=== PATIENT | male | born 1935 | race Caucasian/White ===

== ENCOUNTER 2016-09-09 19:36 | Observation (INO) | payer OTHER ==
[2016-09-09 19:45] VITALS: BP 136/79; PULSE 86; RESP 16; TEMP 98.2; O2SAT 92
[2016-09-09 20:07] VITALS: O2SAT 96
--- NOTE | 2016-09-09 20:08 | PD ---
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 The patient is currently a resident at [facility]. He has been at that facility for the last week. Prior to that he was admitted to [facility] with a stroke and then went [facility] for a month for rehabilitation. The patient's family reports that they are extremely unhappy with the care at [facility] and do not want him to return to that facility. The patient shakes his head yes to having pain in the right leg, right hip area. The patient however was able to stand and pivot with the assistance of ambulance services prior to arrival. The patient is noted to have a small abrasion next to the right lateral eyebrow. The patient has a known history of atrial fibrillation, however he is not anticoagulated. The patient is followed by Dr. Gale for his cardiac care. He unfortunately does not however have a primary care physician. The patient has an indwelling Perez catheter with dark appearing urine. The patient also has a feeding tube in place. According to ambulance services, the staff at the intermediate reports that the patient has been combative/agitated today. The patient's history is limited by the fact that the patient does have a history of aphasia after his stroke. According to review of the patient's intermediate record notes from the nursing staff, the patient had been refusing. Meals, as well as tube feeds and water intake by feeding tube. Multiple discussions were had with the patient regarding this and the patient was swinging at the nursing staff according to the record as if to try to hit them. Additionally, according to the patient's nurse after speaking to the intermediate staff he was informed that the patient pulled out his Perez catheter with the balloon inflated last. He then developed some hematuria. He has also recently been diagnosed with a urinary tract infection, however they reported to the patient's nurse that he has not been taking the Levaquin as he has been refusing it. Upon further questioning of the patient's family, they report that he has not been refusing anything. He reportedly will take the antibiotic. They also report that the patient did not pull out the catheter, however when he fell last week he was accidentally pulled. [facility] Past Medical History Narrative Medical The patient's past medical history is significant for atrial fibrillation, history of recent stroke with resultant aphasia and right-sided paresis. According to the family, the patient had a history of stroke at the end of June that was reportedly an ischemic stroke, however after TPA administration he developed a small area of hemorrhage. The patient has a history of benign prostatic hypertrophy, history of coronary artery disease with myocardial infarction 10 years ago status post stent placement, history of degenerative changes of the spine. Past Surgical History Narrative Surgical The patient's past surgical history is significant for bilateral inguinal hernia repairs, history of cardiac catheterization with stent placement 10 years ago. Social History Alcohol Use: Yes (rare glass of wine) Tobacco Use: No Substance Use: No Allergies-Medications (Allergen,Severity, Reaction): Coded Allergies: No Known Allergies (Unverified , 09/09/16) Review of Systems ROS Limitations: Poor Historian Except as stated in HPI: all other systems reviewed are Neg General / Constitutional: No: Fever Eyes: No: Visual changes HENT: No: Headaches, Neck Stiffness, Neck Pain Cardiovascular: No: Chest Pain or Discomfort Respiratory: No: Shortness of Breath Gastrointestinal: No: Nausea, Vomiting, Abdominal Pain Genitourinary: Positive: Other (darkening of the urine) Musculoskeletal: No: Pain Skin: No Rash Neurologic: Positive: Focal Abnormalities (related to recent stroke), No: Weakness Psychiatric: No: Depression Endocrine: No: Polydipsia Physical Exam Narrative General: The patient is a well-developed well-nourished male in no acute distress. Head and Neck exam: Head is normocephalic, with an area of dried blood overlying the right lateral eyebrow area. The patient had this area clean by me. The patient was noted to have a 3 mm area of superficial laceration with bleeding controlled. No underlying bony tenderness on palpation. No increased facial bone mobility on palpation. Eyes: EOMI, pupils are equal round and reactive to light. Nose: Midline septum with pink mucous membranes Mouth: Dentition unremarkable. Moist mucus membranes. Posterior oropharynx is not erythematous. No tonsillar hypertrophy. Uvula midline. Airway patent. Neck: No palpable lymphadenopathy. No nuchal rigidity. No thyromegaly. No spinous process tenderness to palpation, no step-off or crepitus, no erythema or ecchymosis Cardiovascular: Irregularly irregular with rate control consistent with his history of atrial fibrillation without murmurs, gallops, or rubs. Lungs: Clear to auscultation bilaterally. No wheezes, rhonchi, or rales. Abdomen: Soft, without tenderness to palpation in all 4 quadrants of the abdomen. No guarding, rebound, or rigidity. The patient has a feeding tube in place that appears to be in good repair. No signs of surrounding erythema or drainage. Extremities: No clubbing, cyanosis, or edema. 2+ pulses in all 4 extremities. The patient shakes his head yes to having discomfort in the right leg above the knee and in the right hip. There is no palpable deformity or crepitus. The patient has full range of passive motion, as this is the side that the patient has paresis related to his recent stroke. Back: No spinous process tenderness to palpation. No step-off or crepitus. No erythema or ecchymosis. No costovertebral angle tenderness to palpation. Neurologic Exam: The patient is a phasic. The patient will shake his head yes and no to answer questions. The patient on examination has weakness to the right upper and right lower extremity related to his recent stroke. The patient has no new weakness noted according to him and the family at the bedside. Data Data Last Documented VS Vital Signs Date Time Temp Pulse Resp B/P Pulse Ox O2 Delivery O2 Flow Rate FiO2 09/09/16 20:07 96 09/09/16 19:45 98.2 86 16 136/79 Orders Electrocardiogram (09/09/16 19:53) Complete Blood Count With Diff (09/09/16 19:53) Comprehensive Metabolic Panel (09/09/16 19:53) Prothrombin Time / Inr (Pt) (09/09/16 19:53) Act Partial Throm Time (Ptt) (09/09/16 19:53) Urinalysis - C+S If Indicated (09/09/16 19:53) Chest, Single Ap (09/09/16 19:53) Ct Brain W/O Iv Contrast(Rout) (09/09/16 19:53) Iv Access Insert/Monitor (09/09/16 19:53) Ecg Monitoring (09/09/16 19:53) Oximetry (09/09/16 19:53) Femur (Ap & Lat/2vws) (09/09/16 19:53) Hip, Uni(Ap&Lat) W Ap Pelvis (09/09/16 19:53) Urine Culture (09/09/16 20:55) Levofloxacin (Levaquin) (09/09/16 21:45) Aspirin (Aspirin) (09/09/16 22:02) Sodium Chlorid 0.9% 500 Ml Inj (Ns 500 M (09/09/16 22:15) Admit Order (Ed Use Only) (09/09/16 22:07) Labs Laboratory Tests Test 09/09/16 20:55 White Blood Count 6.3 TH/MM3 Red Blood Count 4.37 MIL/MM3 Hemoglobin 13.2 GM/DL Hematocrit 39.8 % Mean Corpuscular Volume 91.0 FL Mean Corpuscular Hemoglobin 30.3 PG Mean Corpuscular Hemoglobin 33.3 % Concent Red Cell Distribution Width 15.0 % Platelet Count 178 TH/MM3 Mean Platelet Volume 8.6 FL Neutrophils (%) (Auto) 71.4 % Lymphocytes (%) (Auto) 17.7 % Monocytes (%) (Auto) 8.5 % Eosinophils (%) (Auto) 1.8 % Basophils (%) (Auto) 0.6 % Neutrophils # (Auto) 4.5 TH/MM3 Lymphocytes # (Auto) 1.1 TH/MM3 Monocytes # (Auto) 0.5 TH/MM3 Eosinophils # (Auto) 0.1 TH/MM3 Basophils # (Auto) 0.0 TH/MM3 CBC Comment DIFF FINAL Differential Comment Prothrombin Time 12.6 SEC Prothromb Time International 1.1 RATIO Ratio Activated Partial 28.4 SEC Thromboplast Time Urine Color YELLOW Urine Turbidity HAZY Urine pH 6.0 Urine Specific [place] 1.023 Urine Protein 300 mg/dL Urine Glucose (UA) NEG mg/dL Urine Ketones 10 mg/dL Urine Occult Blood LARGE Urine Nitrite NEG Urine Bilirubin NEG Urine Urobilinogen 2.0 MG/DL Urine Leukocyte Esterase LARGE Urine RBC /hpf Urine WBC 137 /hpf Urine Squamous Epithelial <1 /hpf Cells Urine Hyaline Casts 3 /lpf Urine Mucus MANY /lpf Microscopic Urinalysis Comment CULTURE INDICATED Sodium Level 140 MEQ/L Potassium Level 3.9 MEQ/L Chloride Level 104 MEQ/L Carbon Dioxide Level 28.0 MEQ/L Anion Gap 8 MEQ/L Blood Urea Nitrogen 18 MG/DL Creatinine 0.81 MG/DL Estimat Glomerular Filtration 91 ML/MIN Rate Random Glucose 105 MG/DL Calcium Level 9.1 MG/DL Total Bilirubin 0.6 MG/DL Aspartate Amino Transf 48 U/L (AST/SGOT) Alanine Aminotransferase 72 U/L (ALT/SGPT) Alkaline Phosphatase 113 U/L Total Protein 6.6 GM/DL Albumin 3.2 GM/DL MDM Medical Decision Making Medical Screen Exam Complete: Yes Emergency Medical Condition: Yes Medical Record Reviewed: Yes Interpretation(s) Last Impressions Hip and Pelvis X-Ray 09/09/161952 Signed Impressions: Service Date/Time: Friday, September 09, 2016 20:06 - CONCLUSION: Negative for fracture. CT scan may be of benefit if the patient remains symptomatic. Faustino Meier MD FACR Head CT 09/09/161952 Signed Impressions: Service Date/Time: Friday, September 09, 2016 20:19 - CONCLUSION: Subacute infarct basalganglia left side involving the insular cortex. There is no hemorrhage. Faustino Meier MD FACR Femur X-Ray 09/09/161952 Signed Impressions: Service Date/Time: Friday, September 09, 2016 20:09 - CONCLUSION: Normal examination for a patient of this age. Faustino Meier MD FACR Chest X-Ray 09/09/161952 Signed Impressions: Service Date/Time: Friday, September 09, 2016 20:15 - CONCLUSION: No acute disease. Faustino Meier MD FACR Differential Diagnosis Intracranial trauma, versus cervical spine injury, versus intrathoracic injury, versus pelvic fracture, versus femur fracture, versus hip fracture Narrative Course During the course of the patients emergency department visit, the patients history, examination, and differential diagnosis were reviewed with the patient. The patient had IV access obtained and blood work sent for analysis. The patient was placed on a bus driver/monitor with oximetry and blood pressure monitoring. Case management was consulted regarding the patient's concerns about the intermediate facility that he currently resides at. The patient had an EKG done on arrival. The patient's EKG shows a heart rate of 77, atrial fibrillation is noted, no acute ST segment elevation or depression is noted. The patient was provided Levaquin 500 mg per feeding tube. The patients laboratory studies were reviewed and remarkable for white count of 6.3, hemoglobin 13.2, platelets 178 with 71.4 neutrophils, monocytes 8.5, CMP is remarkable for an AST 48, PT 12.6, PTT 28.4, urinalysis shows 10 ketones , large occult blood, large leukocyte esterase, innumerable rbc's, wbc's 137, culture indicated. Radiology studies were reviewed and remarkable for a chest x-ray that shows no acute abnormality. Right femur x-ray, right hip and pelvis x-ray showed no acute abnormality. CT scan of the brain shows a subacute infarct of the basal ganglia, left side involving the insular cortex, no evidence of hemorrhage. The patient's family are hesitant to starting the patient on any type of anticoagulation. We did have a lengthy discussion about starting the patient back on aspirin as he does have a history of atrial fibrillation and also has a history of 2 TIAs in the last year and a recent ischemic stroke. The patient's family were agreeable with the plan to start the patient back on aspirin. The patients results were discussed with the patient, including the plan of care. I explained that further testing and/ or monitoring is indicated based on the patients history, examination, and/ or laboratory findings. Therefore, I recommended admission for additional evaluation. The patient expressed understanding and was agreeable with this plan. The patient was admitted to the hospital in stable condition and sent to a bed under the care of the [facility] service. Physician Communication Physician Communication The patient's case was discussed with Dr. Lozano who did agree to admit the patient for further evaluation and treatment at this time Diagnosis Primary Impression: Urinary tract infection Qualified Code: T83.511D - Urinary tract infection associated with indwelling urethral catheter, subsequent encounter Additional Impressions: Recurrent falls Ischemic stroke Atrial fibrillation Qualified Code: I48.2 - Chronic atrial fibrillation Admitting Information Admitting Physician Requests: it Fatoumata Koroma MD September 09, 2016 20:07
--- NOTE | 2016-09-09 20:26 | RADRPT ---
EXAM DATE/TIME: 09/09/2016 20:15 [facility] COMPARISON: No previous studies available for comparison. INDICATIONS : Evaluate chest for trauma, fell MEDICAL HISTORY : Stroke. SURGICAL HISTORY : None. ENCOUNTER: Initial ACUITY: 1 day PAIN SCORE: 0/10 LOCATION: Bilateral chest FINDINGS: A single view of the chest demonstrates the lungs to be symmetrically aerated without evidence of mas s, infiltrate or effusion. The cardiomediastinal contours are unremarkable. Degenerative changes ar e present about the left shoulder. CONCLUSION: No acute disease. Faustino Meier MD FACR on September 09, 2016 at 20:24 Board Certified Radiologist. This report was verified electronically.
--- NOTE | 2016-09-09 20:38 | RADRPT ---
EXAM DATE/TIME: 09/09/2016 20:19 [facility] COMPARISON: No previous studies available for comparison. INDICATIONS : Fall today, abrasion to right forehead. RADIATION DOSE: 38.93 CTDIvol (mGy) MEDICAL HISTORY : Hypertension. Stroke SURGICAL HISTORY : None. ENCOUNTER: Initial ACUITY: 1 day PAIN SCALE: 6/10 LOCATION: Right frontal head TECHNIQUE: Multiple contiguous axial images were obtained of the head. Using automated exposure control and adj ustment of the mA and/or kV according to patient size, radiation dose was kept as low as reasonably a chievable to obtain optimal diagnostic quality images. FINDINGS: There is subacute infarct in the left sylvian region involving the basalganglia. The right hemispher e is unremarkable. Ventricular size is appropriate. The posterior fossa is normal. There is no evidence for fracture. CONCLUSION: Subacute infarct basalganglia left side involving the insular cortex. There is no hemorrhage. Faustino Meier MD FACR on September 09, 2016 at 20:34 Board Certified Radiologist. This report was verified electronically.
--- NOTE | 2016-09-09 20:56 | RADRPT ---
EXAM DATE/TIME: 09/09/2016 20:06 [facility] COMPARISON: No previous studies available for comparison. INDICATIONS : Evaluate right hip for trauma, fell MEDICAL HISTORY : Stroke. SURGICAL HISTORY : None. ENCOUNTER: Initial ACUITY: 1 day PAIN SCORE: 0/10 LOCATION: Right Hip FINDINGS: Examination of the right hip was performed with AP Pelvis. The primary and secondary trabecular constantine luisana of the femoral neck is intact. The hip joint is of normal width without significant sclerosis or bony hypertrophy. The acetabulum is grossly intact. CONCLUSION: Negative for fracture. CT scan may be of benefit if the patient remains symptomatic. Faustino Meier MD FACR on September 09, 2016 at 20:53 Board Certified Radiologist. This report was verified electronically.
--- NOTE | 2016-09-09 20:59 | RADRPT ---
EXAM DATE/TIME: 09/09/2016 20:09 [facility] COMPARISON: No previous studies available for comparison. INDICATIONS : Evaluate right femur for trauma, fell MEDICAL HISTORY : Stroke. SURGICAL HISTORY : None. ENCOUNTER: Initial ACUITY: 1 day PAIN SCORE: 0/10 LOCATION: Right Femur FINDINGS: Two view examination of the right femur demonstrates no evidence of fracture or dislocation. Bony mi neralization is normal. The soft tissue structures are intact. CONCLUSION: Normal examination for a patient of this age. Faustino Meier MD FACR on September 09, 2016 at 20:56 Board Certified Radiologist. This report was verified electronically.
[2016-09-09 21:14] LABS: AUTOMATED NEUTROPHIL # 4.5 TH/MM3 (1.8-7.7); BASOPHIL % 0.6 % (0.0-2.0); EOSINOPHIL # 0.1 TH/MM3 (0-0.4); EOSINOPHIL % 1.8 % (0.0-4.0); HEMATOCRIT 39.8 % (39.0-51.0); HEMO FLAGS DIFF FINAL; LYMPH % 17.7 % (9.0-44.0); LYMPHOCYTE # 1.1 TH/MM3 (1.0-4.8); MEAN CORPUSCULAR HEMOGLOBIN 30.3 PG (27.0-34.0); MEAN CORPUSCULAR HGB CONC 33.3 % (32.0-36.0); MONO % 8.5 % (0.0-8.0); NEUT % 71.4 % (16.0-70.0); PLATELET COUNT 178 TH/MM3 (150-450); RED BLOOD COUNT 4.37 MIL/MM3 (4.50-5.90); WHITE BLOOD COUNT 6.3 TH/MM3 (4.0-11.0)
[2016-09-09 21:26] LABS: APTT (PATIENT) 28.4 SEC (24.3-30.1); BLOOD, URINE LARGE (NEG); COMMENT (UR) CULTURE INDICATED; CULTURE IF INDICATED CULTURE INDICATED; GLUCOSE,URINE NEG (NEG); HYALINE CAST, URINE 3 /lpf (RARE); INTERNATIONAL NORMALIZED RATIO 1.1 RATIO; KETONE, URINE 10 mg/dL (NEG); MUCUS URINE MANY /lpf (OCC); NITRITE,URINE NEG (NEG); PROTHROMBIN TIME - PATIENT 12.6 SEC (9.8-11.6); SQUAMOUS EPITHELIAL CELL URINE <1 /hpf (0-5); URINE COLOR YELLOW (YELLW/STRAW)
[2016-09-09] MEDS ORDERED: LEVOFLOXACIN 500 MG TAB PO ONE (21:45)
[2016-09-09 21:48] LABS: ANION GAP 8 MEQ/L (5-15); AST (GOT) 48 U/L (15-37); BLOOD UREA NITROGEN 18 MG/DL (7-18); CHLORIDE 104 MEQ/L (98-107); GLOMERULAR FILTRATION RATE 91 ML/MIN (>89); POTASSIUM 3.9 MEQ/L (3.5-5.1); SODIUM (NA) 140 MEQ/L (136-145)
[2016-09-09 21:52] LABS: ALKALINE PHOSPHATASE 113 U/L (45-117); ALT (GPT) 72 U/L (12-78); TOTAL BILIRUBIN ADULT 0.6 MG/DL (0.2-1.0)
[2016-09-09] MEDS ORDERED: ASPIRIN 325 MG TAB ONE (22:02)
[2016-09-09] MEDS ORDERED: SODIUM CHLORID 0.9% 500 ML INJ 500 ML IV ONE (22:15)
[2016-09-09] MEDS ORDERED: SODIUM CHLOR 0.9% 1000 ML INJ 1,000 ML IV SCH (22:21)
--- NOTE | 2016-09-09 22:24 | HHI.HP ---
[facility] Service [facility] Primary Care Physician Dada Gale MD Admission Diagnosis Recurrent Falls, Hematuria, UTI with indwelling khan cath Diagnoses: (1) CVA (cerebral vascular accident) Diagnosis: Principal (2) Recurrent falls Diagnosis: Principal (3) UTI (urinary tract infection) Diagnosis: Principal (4) A-fib Diagnosis: Principal Travel History International Travel<30 Days: No Contact w/Intl Traveler <30 Da: No Traveled to Known Affected Are: No History of Present Illness This is an 80-year-old male with a PMH of HTN, A. fib, CVA with Residual Aphasia and Right-Sided Hemiparesis, Indwelling Khan, PEG Tube and CAD who was sent to the ER from [facility] after unwitnessed fall. Per SNF report , pt w/ increasing agitation and combative, trying to hit nurses, refusing meals , refusing treatment and had pulled out Khan. Per family, pt not refusing. According to them, Khan accidentally dislodged during the time of fall today. Khan replaced at this time. Of note, pt has been on Levaquin 500mg PO for UTI , per SNF, pt not on any other medications. Family unhappy w/ care at [facility] thus far. Case Management consulted for assistance w/ possible transfer to alternate facility. On arrival, BP 136/79, HR 86, O2 sat 92% on RA, Afebrile. CBC essentially unremarkable except for elevated neutrophil count. Chemistry essentially unremarkable. UA with UTI. CT Head with subacute infarct basal ganglia left, no acute hemorrhage. CXR with no acute findings. Femur X-ray normal. Hip/Pelvis X-ray negative for fracture. No local PCP. Following w/ Dr. Gale for Cardiology. Not on anticoagulation for high risk of bleed per family. Review of Systems ROS: Unable to obtain secondary to aphasia Past Family Social History Past Medical History PMH: HTN, A. fib, CVA with Residual Aphasia and Right-Sided Hemiparesis, Indwelling Khan, PEG Tube and CA Past Surgical History PAST SURGICAL HISTORY: Bilateral Inguinal Hernia Repair Allergies: Coded Allergies: No Known Allergies (Unverified , 09/09/16) Family History PAST FAMILY HISTORY: Reviewed. No h/o DM or CAD Social History PAST SOCIAL HISTORY: Negative for alcohol, tobacco or drugs. Physical Exam Vital Signs Vital Signs Date Time Temp Pulse Resp B/P Pulse Ox O2 Delivery O2 Flow Rate FiO2 09/09/16 20:07 96 09/09/16 19:45 98.2 86 16 136/79 92 Physical Exam PE: GENERAL: Elderly white male in no acute distress. Family bedside. Aphasia. HEENT: PERRLA, EOMI. No scleral icterus or conjunctival pallor. No lid lag or facial droop. CARDIOVASCULAR: Regular rate and rhythm. No obvious murmurs to auscultation. No chest tenderness to palpation. RESPIRATORY: No obvious rhonchi or wheezing. Clear to auscultation. Breath sounds equal bilaterally. GASTROINTESTINAL: Abdomen soft, non-tender, nondistended. BS normal. Indwelling Khan. PEG tube intact. MUSCULOSKELETAL: Extremities without clubbing, cyanosis, or edema. No obvious deformities. NEUROLOGICAL: Awake, aphasic, shakes/nods head yes/no. No new focal neurologic deficits, residual right-sided hemiparesis at baseline. Laboratory Laboratory Tests Test 09/09/16 20:55 White Blood Count 6.3 Red Blood Count 4.37 Hemoglobin 13.2 Hematocrit 39.8 Mean Corpuscular Volume 91.0 Mean Corpuscular Hemoglobin 30.3 Mean Corpuscular Hemoglobin 33.3 Concent Red Cell Distribution Width 15.0 Platelet Count 178 Mean Platelet Volume 8.6 Neutrophils (%) (Auto) 71.4 Lymphocytes (%) (Auto) 17.7 Monocytes (%) (Auto) 8.5 Eosinophils (%) (Auto) 1.8 Basophils (%) (Auto) 0.6 Neutrophils # (Auto) 4.5 Lymphocytes # (Auto) 1.1 Monocytes # (Auto) 0.5 Eosinophils # (Auto) 0.1 Basophils # (Auto) 0.0 CBC Comment DIFF FINAL Differential Comment Prothrombin Time 12.6 Prothromb Time International 1.1 Ratio Activated Partial 28.4 Thromboplast Time Urine Color YELLOW Urine Turbidity HAZY Urine pH 6.0 Urine Specific [place] 1.023 Urine Protein 300 Urine Glucose (UA) NEG Urine Ketones 10 Urine Occult Blood LARGE Urine Nitrite NEG Urine Bilirubin NEG Urine Urobilinogen 2.0 Urine Leukocyte Esterase LARGE Urine RBC Urine WBC 137 Urine Squamous Epithelial <1 Cells Urine Hyaline Casts 3 Urine Mucus MANY Microscopic Urinalysis Comment CULTURE INDICATED Sodium Level 140 Potassium Level 3.9 Chloride Level 104 Carbon Dioxide Level 28.0 Anion Gap 8 Blood Urea Nitrogen 18 Creatinine 0.81 Estimat Glomerular Filtration 91 Rate Random Glucose 105 Calcium Level 9.1 Total Bilirubin 0.6 Aspartate Amino Transf 48 (AST/SGOT) Alanine Aminotransferase 72 (ALT/SGPT) Alkaline Phosphatase 113 Total Protein 6.6 Albumin 3.2 Date/Time Procedure Status Source Growth 09/09/16 20:55 Urine Culture Received Urine Clean Catch Pending Result Diagram: 09/09/16205409/09/162054 Assessment and Plan Problem List: (1) CVA (cerebral vascular accident) ICD Code: I63.9 Status: Acute (2) Recurrent falls ICD Code: R29.6 Status: Acute (3) UTI (urinary tract infection) ICD Code: N39.0 Status: Acute (4) A-fib ICD Code: I48.91 Status: Acute Assessment and Plan A/P: 1. CVA: recent CVA approx 7wks ago at , s/p TPA w/ subsequent ICH, now w/ residual aphasia and right-sided hemiparesis, at baseline. No new focal deficits. Not on home medications per SNF except for Levaquin. CT Head w/ no acute hemorrhage, images reviewed by me. ASA started in ER. 2. Falls: Recurrent. Unwitnessed fall today per SNF. CT Head w/ subacute infarct left basal ganglia, no acute findings. Hip/Pelvis X-ray negative for fracture. Femur X-ray negative. CXR with no acute findings, images reviewed by me. PT for eval/tx. 3. UTI: U/a w/ UTI. Per SNF and family pt on Levaquin 500mg po qd for UTI. Will continue w/ IV Abx, IVF for hydration. +Indwelling khan. 4. A-fib: Chronic. Controlled. Follows w/ Dr. Gale as outpatient. Previously not on anticoagulation in light of ICH and high risk for bleed per family. CT Head w/ no acute hemorrhage. ASA restarted in ER, high risk for embolic event. 5. DVT Prophylaxis: SCD/Teds. 6. Social work for d/c planning as needed. 7. Case discussed w/ ER physician at length. Zoraida Lozano MD September 09, 2016 22:24
[2016-09-09] MEDS ORDERED: ONDANSETRON HCL 4 MG/2 ML VIAL IVP PRN (22:30)
[2016-09-09] MEDS ORDERED: MORPHINE SULFATE 4 MG/ML INJ IV PRN ×2 (22:30)
[2016-09-09] MEDS ORDERED: SODIUM CHLORIDE 0.9% FLUSH 10 ML FLUSH IV FLUSH PRN (22:30)
[2016-09-09] MEDS ORDERED: ACETAMINOPHEN 325 MG TAB PO PRN (22:30)
[2016-09-09] MEDS ORDERED: BISACODYL 10 MG SUPP RECTAL PRN (22:30)
[2016-09-09 22:57] VITALS: BP 119/73; PULSE 77; RESP 16; O2SAT 92
[2016-09-10 05:41] VITALS: BP 145/79; PULSE 85; RESP 20; O2SAT 92
[2016-09-10 07:37] VITALS: BP 158/88; PULSE 95; RESP 20; TEMP 98; O2SAT 95
[2016-09-10] MEDS ORDERED: ASPI325T PO (08:21)
[2016-09-10 08:23] LABS: AUTOMATED NEUTROPHIL # 4.6 TH/MM3 (1.8-7.7); BASOPHIL % 0.7 % (0.0-2.0); EOSINOPHIL # 0.1 TH/MM3 (0-0.4); EOSINOPHIL % 1.3 % (0.0-4.0); HEMATOCRIT 37.1 % (39.0-51.0); HEMO FLAGS DIFF FINAL; LYMPH % 19.3 % (9.0-44.0); LYMPHOCYTE # 1.2 TH/MM3 (1.0-4.8); MEAN CELL VOLUME 90.3 FL (80.0-100.0); MEAN CORPUSCULAR HEMOGLOBIN 30.3 PG (27.0-34.0); MEAN CORPUSCULAR HGB CONC 33.6 % (32.0-36.0); NEUT % 71.7 % (16.0-70.0); PLATELET COUNT 190 TH/MM3 (150-450); RED CELL DISTRIBUTION WIDTH 15.3 % (11.6-17.2); WHITE BLOOD COUNT 6.4 TH/MM3 (4.0-11.0)
[2016-09-10] MEDS ORDERED: MELA0.02 (08:25)
[2016-09-10 08:56] LABS: ALKALINE PHOSPHATASE 111 U/L (45-117); ALT (GPT) 65 U/L (12-78); ANION GAP 8 MEQ/L (5-15); AST (GOT) 43 U/L (15-37); BICARBONATE 28.8 MEQ/L (21.0-32.0); BLOOD UREA NITROGEN 20 MG/DL (7-18); CHLORIDE 105 MEQ/L (98-107); GLOMERULAR FILTRATION RATE 92 ML/MIN (>89); POTASSIUM 3.8 MEQ/L (3.5-5.1); SODIUM (NA) 142 MEQ/L (136-145); TOTAL BILIRUBIN ADULT 0.7 MG/DL (0.2-1.0)
[2016-09-10] MEDS: SODIUM CHLORIDE 0.9% FLUSH 10 ML FLUSH IV FLUSH SCH ×2 (09:00→20:19)
[2016-09-10] MEDS: cefTRIAXone INJ 1,000 MG in SODIUM CHLORIDE 0.9% INJ 100 ML IV SCH (09:04)
--- NOTE | 2016-09-10 10:50 | HHI.PR ---
Subjective Remarks Follow-up for fall and UTI. Family is at bedside. The patient has expressive aphasia at baseline. Family reports that patient is a poor historian. Therefore the patient has been tolerating diet. He did stand some with PT today. The patient has indwelling Perez catheter due to urinary retention, has appointment for urology coming up as outpatient. The patient reports fever and chills, but family states that the fever has been recorded. The family is undecided regarding antiplatelet/anticoagulation, wants to follow-up with the patient's volumetric weigher. They report the patient received 1 dose of Levaquin prior to coming to the hospital. No acute issues at this time, awaiting placement. Objective Vitals Vital Signs Date Time Temp Pulse Resp B/P Pulse Ox O2 Delivery O2 Flow Rate FiO2 09/10/16 07:37 98.0 95 20 158/88 95 09/10/16 05:41 85 20 145/79 92 09/09/16 22:57 77 16 119/73 92 09/09/16 20:07 96 09/09/16 19:45 98.2 86 16 136/79 92 I/O 09/09/16 09/09/16 09/09/16 09/10/16 09/10/16 09/10/16 07:00 15:00 23:00 07:00 15:00 23:00 Intake Total 603 ml Output Total 200 ml Balance 403 ml Intake IV Total 603 ml Output Urine Total 200 ml # Bowel Movements 1 Result Diagram: 09/10/16 0753 09/10/16 0753 Imaging Last Impressions Hip and Pelvis X-Ray 09/09/161952 Signed Impressions: Service Date/Time: Friday, September 09, 2016 20:06 - CONCLUSION: Negative for fracture. CT scan may be of benefit if the patient remains symptomatic. Faustino Meier MD FACR Head CT 09/09/161952 Signed Impressions: Service Date/Time: Friday, September 09, 2016 20:19 - CONCLUSION: Subacute infarct basalganglia left side involving the insular cortex. There is no hemorrhage. Faustino Meier MD FACR Femur X-Ray 09/09/161952 Signed Impressions: Service Date/Time: Friday, September 09, 2016 20:09 - CONCLUSION: Normal examination for a patient of this age. Faustino Meier MD FACR Chest X-Ray 09/09/161952 Signed Impressions: Service Date/Time: Friday, September 09, 2016 20:15 - CONCLUSION: No acute disease. Faustino Meier MD FACR Objective Remarks GENERAL: Well-developed well-nourished. In no acute distress. SKIN: Warm and dry. No lesions noted. HEENT: Normocephalic. Pupils equal and round. Mucous membranes pink and moist. CARDIOVASCULAR: Irregular rate and rhythm. No murmur appreciated. RESPIRATORY: No accessory muscle use. Clear to auscultation. Breath sounds equal bilaterally. GASTROINTESTINAL: Abdomen soft, non-tender, nondistended. Bowel sounds x4. MUSCULOSKELETAL: No obvious deformities. No clubbing or cyanosis. No edema. NEUROLOGICAL: Awake and alert. Profound right-sided weakness. Follows some commands. Expressive aphasia. PSYCHIATRIC: Appropriate mood and affect; insight and judgment difficult to assess, but appears limited. A/P Problem List: (1) CVA (cerebral vascular accident) ICD Code: I63.9 Status: Chronic (2) Recurrent falls ICD Code: R29.6 Status: Acute (3) UTI (urinary tract infection) ICD Code: N39.0 Status: Acute (4) A-fib ICD Code: I48.91 Status: Chronic Assessment and Plan 80-year-old male with a PMH of HTN, A. 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 No new focal deficits. Not on home medications per SNF except for Levaquin. CT Head w/ no acute hemorrhage, reviewed. Family undecided on anticoagulants since/ antiplatelet, wants to follow up with their volumetric weigher. Case management consulted and assisting with placement, reportedly Felipe is evaluating the patient and requests OT and ST evaluation. Falls: Recurrent. Unwitnessed fall prior to admission per SNF. Reviewed: CT Head w/ subacute infarct left basal ganglia, no acute findings. Hip/Pelvis X-ray negative for fracture. Femur X-ray negative. CXR with no acute findings. -PT for eval/tx. UTI: U/a w/ UTI. Indwelling Perez. Currently with hematuria after traumatic Perez removal at SNF. Received Levaquin 1 prior to admission at SNF. Continue IV ceftriaxone. Follow-up urine culture. A-fib: Chronic. Controlled. Follows w/ Dr. Gale as outpatient. Previously not on anticoagulation in light of ICH and high risk for bleed per family. Outpatient follow-up with cardiology. DVT Prophylaxis: SCD/Teds. Discharge Planning Follow-up rehabilitation services recommendations and urine culture. Case management consulted for assistance with discharge disposition. Minor Oliveira September 10, 2016 10:50
[2016-09-10 12:04] VITALS: BP 124/74; PULSE 78; RESP 20; TEMP 98.3; O2SAT 95
--- NOTE | 2016-09-10 14:47 | EKG ---
Date Performed: 09/09/2016 Time Performed: 20:58:28 PTAGE: 80 years EKG: ATRIAL FIBRILLATION VOLTAGE CRITERIA FOR LVH NONSPECIFIC T-WAVE ABNORMALITY ABNORMAL ECG NO PREVIOUS TRACING DOCTOR: Brian Chavez Interpretating Date/Time 09/10/2016 14:42:38
--- NOTE | 2016-09-10 15:07 | MB ---
cc: NUNU SMYTH MD DATE OF CONSULTATION 09/10/16 HISTORY OF PRESENT ILLNESS Tab is a very pleasant 81-year-old gentleman with a history of coronary disease, status post recent CVA with hemiparesis, dysphasia, hemineglect admitted for recurrent falls, to [place] emergency room. He otherwise denies any chest pain, fever, chills, cough, GI or bleeding, paroxysmal nocturnal dyspnea, orthopnea, syncope or dizziness. PAST MEDICAL HISTORY His past medical history is per his history of present illness. 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 SOCIAL HISTORY He drinks a glass of wine rarely. He denies tobacco use. ALLERGIES None. MEDICATIONS Medications in the hospital: 1. Ceftriaxone. 2. Aspirin. PHYSICAL EXAMINATION VITAL SIGNS: Pulse 78, blood pressure 124/74, respiratory rate 20, temperature 98.3. GENERAL: In general he is alert and oriented times three in no acute distress. NECK: Neck is supple. No JVD, no bruits. CARDIOVASCULAR: Normal S1-S2. No murmurs, rubs or gallops. LUNGS: Clear to auscultation bilaterally. ABDOMEN: Soft, nontender, nondistended with positive bowel sounds. EXTREMITIES: No clubbing, cyanosis or edema. LABORATORY DATA White count 6.4, hemoglobin 12.4, hematocrit 37.1, platelet count 190, sodium 142, potassium 3.9, chloride 105, bicarb 28.8, BUN 20, creatinine 0.80, AST 43, ALT 65, albumin 3.1, INR 1.1. IMAGING STUDIES Chest x-ray no acute disease. Head CTA subacute infarct basal ganglia left-sided involving the insular cortex. No hemorrhage. CARDIOLOGY STUDIES EKG a-fib at a rate of 77 beats per minute, anteroseptal Q-waves. FINAL DIAGNOSIS 1. CVA. 2. Multiple falls. 3. Atrial fibrillation. 4. Coronary artery disease. 5. Elevated liver function tests. 6. Anemia. DISCUSSION At this point in time I do think anticoagulation and blood pressure parameters will need to be determined by neurology. I am going to consult the patient's established neurologist, Dr. Weiner. MD ALBERTO Alfonso/DELORIS /1:14 PM /2:47 PM
[2016-09-10 15:46] VITALS: BP 116/66; PULSE 74; RESP 20; TEMP 98.3; O2SAT 95
--- NOTE | 2016-09-10 16:54 | OTSOAPIP ---
TIME SESSION COMPLETED: 1610 ATTEMPTED TO SEE PATIENT FOR OCCUPATIONAL TEHRAPY EVALUATION, HOWEVER UPON ARRIVAL PATIENT IS SLEEPING. PRESENT IN ROOM AND POLITELY REQUESTS THERAPIST TO HOLD EVALUATION THIS DATE AND TO RETURN TOMORROW SHE WANTS TO ALLOW PATIENT TO REST. WILL FOLLOW UP NEXT DAY. INTERDISCIPLINARY COMMUNICATION: REVIEWED ELECTRONIC MEDICAL RECORD, SPOKE WITH SAMUEL RUIZ Therapist: Xochilt Dalton, OTR/L Signature on file
[2016-09-10 21:22] VITALS: BP 127/74; PULSE 64; RESP 18; TEMP 98; O2SAT 90
[2016-09-11 05:24] VITALS: BP 139/83; PULSE 73; RESP 18; TEMP 98.7; O2SAT 90
--- NOTE | 2016-09-11 07:57 | HHI.PR ---
Objective Vital Signs Date Time Temp Pulse Resp B/P Pulse Ox O2 Delivery O2 Flow Rate FiO2 09/11/16 05:24 98.7 73 18 139/83 90 09/10/16 21:22 98.0 64 18 127/74 90 09/10/16 15:46 98.3 74 20 116/66 95 09/10/16 12:04 98.3 78 20 124/74 95 I/O 09/10/16 09/10/16 09/10/16 09/11/16 09/11/16 09/11/16 07:00 15:00 23:00 07:00 15:00 23:00 Intake Total 603 ml 760 ml Output Total 200 ml 400 ml 350 ml Balance 403 ml -400 ml 410 ml Intake IV Total 603 ml 760 ml Output Urine Total 200 ml 400 ml 350 ml # Bowel Movements 1 Result Diagram: 09/10/16 0753 09/10/16 0753 Objective Remarks awake alert rhp and exp aphasia Assessment and Plan Assessment and Plan imp i need to see mri films when done today and decide on anticoagulation and then he can dc back to [facility] text my cell when mri done Roverto Meredith MD September 11, 2016 07:57
[2016-09-11 07:59] VITALS: BP 144/91; PULSE 78; RESP 20; TEMP 98; O2SAT 93
--- NOTE | 2016-09-11 08:37 | MB ---
cc: SHAWN PERERA M.D. DATE OF CONSULTATION 09/10/2016 HISTORY An 80-year-old right-handed man with hypertension, [place], stent, atrial fibrillation. He was on an aspirin when he had a stroke on 07/21/2016, a left MCA infarct. Left him with aphasia and right-sided weakness, almost totally paralyzed on the right side. He has been over at rehab at [facility] and fell out of bed. He has been walking with the parallel bars evidently a little bit. SOCIAL HISTORY Not a smoker. Occasionally has a drink. Lives with her . FAMILY HISTORY Negative for cancer, seizure or stroke. REVIEW OF SYSTEMS According to the daughter, no history of diabetes, hypercholesterolemia, CABG, renal, hepatic, pulmonary disease, thyroid disease, lupus, ulcer, cancer or seizure. He was seen recently in June over at [facility] by Dr. Weiner. Evidently got TPA with a small amount of hemorrhage after that. History of benign prostatic hypertrophy. MEDICATIONS None listed on the intake notes but currently on: 1. Ceftriaxone. 2. As needed morphine. 3. He had an aspirin yesterday. PHYSICAL EXAMINATION VITAL SIGNS: Afebrile, 74, 20, 116/66. NECK: No carotid bruits. HEART: Regular rhythm. I do not detect a murmur. NEUROLOGIC: He awakens. He reacts a little bit less over to the right to threat than the left. He mumbled something, I could not understand it. Does not really follow commands for me. Will not stick out his tongue for me. He moves the left arm and leg normally and the right upper extremity has increased tone, unable to move that or really move the right lower extremity much. The toes are downgoing bilaterally. LABORATORY DATA CBC is essentially normal. Basic metabolic profile was normal as her LFTs, albumin 3.1. Coags normal. UA large amount of leukocyte esterase, [address] scan of brain shows no hemorrhage, but he has got a rather moderate size left deep MCA infarct with some extension to the cortex. IMPRESSION Recent left MCA infarct. We will check an MRI of the brain. If there is no hemorrhage consider anticoagulation at this time, otherwise nothing new neurologically and could go back to rehab when we decide on the blood thinners. MD KASIA Moraes/KK /6:41 PM /8:35 AM
[2016-09-11] MEDS: SODIUM CHLORIDE 0.9% FLUSH 10 ML FLUSH IV FLUSH SCH ×2 (09:15→19:33)
[2016-09-11] MEDS: cefTRIAXone INJ 1,000 MG in SODIUM CHLORIDE 0.9% INJ 100 ML IV SCH (09:15)
[2016-09-11 10:18] LABS: BICARBONATE 26.8 MEQ/L (21.0-32.0); POTASSIUM 3.7 MEQ/L (3.5-5.1)
--- NOTE | 2016-09-11 10:45 | HHI.PR ---
Subjective Remarks Follow-up for fall. Daughter is at bedside. The patient has no acute complaints today. The patient reports that he hasn't been eating, doesn't care much for the food. He denies any swallowing difficulties. The patient states the patient ate all of his breakfast "with gusto". RN reported dark output from Perez overnight which resolved after Perez was flushed. Patient's cash applications associate has requested neurology evaluation to resume antiplatelets/ anticoagulation, planning for MRI today. [facility] is looking into the patient. Objective Vitals Vital Signs Date Time Temp Pulse Resp B/P Pulse Ox O2 Delivery O2 Flow Rate FiO2 09/11/16 07:59 98.0 78 20 144/91 93 09/11/16 05:24 98.7 73 18 139/83 90 09/10/16 21:22 98.0 64 18 127/74 90 09/10/16 15:46 98.3 74 20 116/66 95 09/10/16 12:04 98.3 78 20 124/74 95 I/O 09/10/16 09/10/16 09/10/16 09/11/16 09/11/16 09/11/16 07:00 15:00 23:00 07:00 15:00 23:00 Intake Total 603 ml 760 ml Output Total 200 ml 400 ml 350 ml Balance 403 ml -400 ml 410 ml Intake IV Total 603 ml 760 ml Output Urine Total 200 ml 400 ml 350 ml # Bowel Movements 1 Result Diagram: 09/10/16 0753 09/11/16 0840 Imaging Last Impressions Hip and Pelvis X-Ray 09/09/161952 Signed Impressions: Service Date/Time: Friday, September 09, 2016 20:06 - CONCLUSION: Negative for fracture. CT scan may be of benefit if the patient remains symptomatic. Faustino Meier MD FACR Head CT 09/09/161952 Signed Impressions: Service Date/Time: Friday, September 09, 2016 20:19 - CONCLUSION: Subacute infarct basalganglia left side involving the insular cortex. There is no hemorrhage. Faustino Meier MD FACR Femur X-Ray 09/09/161952 Signed Impressions: Service Date/Time: Friday, September 09, 2016 20:09 - CONCLUSION: Normal examination for a patient of this age. Faustino Meier MD FACR Chest X-Ray 09/09/161952 Signed Impressions: Service Date/Time: Friday, September 09, 2016 20:15 - CONCLUSION: No acute disease. Faustino Meier MD FACR Objective Remarks GENERAL: Well-developed well-nourished. In no acute distress. SKIN: Warm and dry. No lesions noted. HEENT: Normocephalic. Pupils equal and round. Mucous membranes pink and moist. CARDIOVASCULAR: Irregular rate and rhythm. No murmur appreciated. RESPIRATORY: No accessory muscle use. Clear to auscultation. Breath sounds equal bilaterally. GASTROINTESTINAL: Abdomen soft, non-tender, nondistended. Bowel sounds x4. PEG tube in place with abdominal binder. MUSCULOSKELETAL: No obvious deformities. No clubbing or cyanosis. No edema. NEUROLOGICAL: Awake and alert. Profound right-sided weakness. Follows some commands. Expressive aphasia. PSYCHIATRIC: Appropriate mood and affect; insight and judgment difficult to assess, but appears limited. A/P Problem List: (1) CVA (cerebral vascular accident) ICD Code: I63.9 Status: Chronic (2) Recurrent falls ICD Code: R29.6 Status: Acute (3) UTI (urinary tract infection) ICD Code: N39.0 Status: Acute (4) A-fib ICD Code: I48.91 Status: Chronic Assessment and Plan 80-year-old male with a PMH of HTN, A. 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 No new focal deficits. Not on home medications per SNF except for Levaquin. CT Head w/ no acute hemorrhage, reviewed. Case management consulted and assisting with placement, reportedly Felipe is evaluating the patient and requests PT/OT/ST evaluation. Falls: Recurrent. Unwitnessed fall prior to admission per SNF. Reviewed: CT Head w/ subacute infarct left basal ganglia, no acute findings. Hip/Pelvis X-ray negative for fracture. Femur X-ray negative. CXR with no acute findings. -Continue rehabilitation at SNF Abnormal UA: U/a w/ evidence of UTI. Indwelling Perez for obstructive uropathy. Received Levaquin 1 prior to admission at SNF. Urine culture with mixed parish. Sterile culture due to prior antibiotics vs colonization of Perez. Received IV ceftriaxone 2. Continue course of Cipro. Continue outpatient urology follow-up. A-fib: Chronic. Controlled. Follows w/ Dr. Gale as outpatient. Previously not on anticoagulation in light of ICH and high risk for bleed per family. Patient's cash applications associate requested neurology evaluation to resume antiplatelet/anticoagulation. Neurology ordered brain MRI and will make recommendations based on the results. DVT Prophylaxis: SCD/Teds. Discharge Planning Follow-up MRI results and neurology recommendations. Discharge to SNF when arrangements made. Case management consulted for assistance with discharge disposition. Minor Oliveira September 11, 2016 10:45
[2016-09-11 11:39] VITALS: BP 134/80; PULSE 75; RESP 19; TEMP 98.3; O2SAT 93
--- NOTE | 2016-09-11 14:56 | PD.CARD.PN ---
Subjective Subjective Remarks alert in nad Objective Vital Signs / I&O Vital Signs Date Time Temp Pulse Resp B/P Pulse Ox O2 Delivery O2 Flow Rate FiO2 09/11/16 11:39 98.3 75 19 134/80 93 09/11/16 07:59 98.0 78 20 144/91 93 09/11/16 05:24 98.7 73 18 139/83 90 09/10/16 21:22 98.0 64 18 127/74 90 09/10/16 15:46 98.3 74 20 116/66 95 I/O 09/10/16 09/10/16 09/10/16 09/11/16 09/11/16 09/11/16 07:00 15:00 23:00 07:00 15:00 23:00 Intake Total 603 ml 760 ml Output Total 200 ml 400 ml 350 ml Balance 403 ml -400 ml 410 ml Intake IV Total 603 ml 760 ml Output Urine Total 200 ml 400 ml 350 ml # Bowel Movements 1 Physical Exam GENERAL: SKIN: Warm and dry. HEAD: Normocephalic. EYES: No scleral icterus. No injection or drainage. NECK: Supple, trachea midline. No JVD or lymphadenopathy. CARDIOVASCULAR: Regular rate and rhythm without murmurs, gallops, or rubs. RESPIRATORY: Breath sounds equal bilaterally. No accessory muscle use. GASTROINTESTINAL: Abdomen soft, non-tender, nondistended. MUSCULOSKELETAL: No cyanosis, or edema. BACK: Nontender without obvious deformity. No CVA tenderness. Laboratory Laboratory Tests Test 09/11/16 08:40 Sodium Level 143 MEQ/L Potassium Level 3.7 MEQ/L Chloride Level 107 MEQ/L Carbon Dioxide Level 26.8 MEQ/L Anion Gap 9 MEQ/L Blood Urea Nitrogen 17 MG/DL Creatinine 0.67 MG/DL Estimat Glomerular Filtration 113 ML/MIN Rate Random Glucose 88 MG/DL Calcium Level 8.6 MG/DL Assessment and Plan Problem List: (1) Atrial fibrillation (2) Ischemic stroke (3) CVA (cerebral vascular accident) (4) Recurrent falls Assessment and Plan 1.) Af - rate controlled, assymptomatic, ac and bp parameters per Dr hKan Problem Qualifiers (1) Atrial fibrillation: Qualified Code: I48.2 - Chronic atrial fibrillation Dada Gale MD September 11, 2016 14:56
[2016-09-11 15:24] VITALS: BP 141/87; PULSE 93; RESP 16; TEMP 98.3; O2SAT 94
[2016-09-11 19:29] VITALS: BP 133/88; PULSE 79; RESP 16; TEMP 98.6; O2SAT 91
[2016-09-11] MEDS: CIPROFLOXACIN 500 MG TAB PO SCH (19:33)
[2016-09-12] VITALS (7 sets, daily range): BP systolic 108–154; BP diastolic 56–96; PULSE 66–86; RESP 16–20; TEMP 97.5–98.8; O2SAT 90–94
[2016-09-12] MEDS: SODIUM CHLOR 0.9% 1000 ML INJ 1,000 ML IV SCH (00:36)
[2016-09-12] MEDS: SODIUM CHLORIDE 0.9% FLUSH 10 ML FLUSH IV FLUSH SCH ×2 (08:23→21:00)
[2016-09-12] MEDS: CIPROFLOXACIN 500 MG TAB PO SCH (08:23)
[2016-09-12] MEDS: LACTOBACILLUS ACIDOPHILUS 1 GM PACKET PO SCH ×4 (08:23→21:19)
--- NOTE | 2016-09-12 09:14 | HHI.PR ---
Subjective Remarks Follow-up for subacute CVA and diarrhea. Patient seen with and daughter at bedside. The patient and a few episodes of loose stools overnight. The patient does communicate that he has discomfort in his abdomen. The patient has had episodes of agitation with MRI yesterday as well as trying to get dressed and uses a wheelchair today. The family is trying to get the patient into [place] rehabilitation. Objective Vitals Vital Signs Date Time Temp Pulse Resp B/P Pulse Ox O2 Delivery O2 Flow Rate FiO2 09/12/16 08:35 98.3 68 18 148/76 91 09/12/16 04:46 98.7 81 18 140/72 94 09/12/16 00:04 98.2 86 18 154/96 93 09/11/16 19:29 98.6 79 16 133/88 91 09/11/16 15:24 98.3 93 16 141/87 94 09/11/16 11:39 98.3 75 19 134/80 93 I/O 09/11/16 09/11/16 09/11/16 09/12/16 09/12/16 09/12/16 07:00 15:00 23:00 07:00 15:00 23:00 Intake Total 760 ml Output Total 350 ml 450 ml 450 ml Balance 410 ml -450 ml -450 ml Intake IV Total 760 ml Output Urine Total 350 ml 450 ml 450 ml # Bowel Movements 2 Result Diagram: 09/10/16 0753 09/11/16 0840 Imaging Last Impressions Hip and Pelvis X-Ray 09/09/161952 Signed Impressions: Service Date/Time: Friday, September 09, 2016 20:06 - CONCLUSION: Negative for fracture. CT scan may be of benefit if the patient remains symptomatic. Faustino Meier MD FACR Head CT 09/09/161952 Signed Impressions: Service Date/Time: Friday, September 09, 2016 20:19 - CONCLUSION: Subacute infarct basalganglia left side involving the insular cortex. There is no hemorrhage. Faustino Meier MD FACR Femur X-Ray 09/09/161952 Signed Impressions: Service Date/Time: Friday, September 09, 2016 20:09 - CONCLUSION: Normal examination for a patient of this age. Faustino Meier MD FACR Chest X-Ray 5/14/17 1953 Signed Impressions: Service Date/Time: Friday, September 09, 2016 20:15 - CONCLUSION: No acute disease. Faustino Meier MD FACR Objective Remarks GENERAL: Well-developed well-nourished. In no acute distress. SKIN: Warm and dry. No lesions noted. HEENT: Normocephalic. Pupils equal and round. Mucous membranes pink and moist. CARDIOVASCULAR: Irregular rate and rhythm. No murmur appreciated. RESPIRATORY: No accessory muscle use. Clear to auscultation. Breath sounds equal bilaterally. GASTROINTESTINAL: Abdomen soft, non-tender, nondistended. Bowel sounds x4. PEG tube in place with abdominal binder. MUSCULOSKELETAL: No obvious deformities. No clubbing or cyanosis. No edema. NEUROLOGICAL: Awake and alert. Profound right-sided weakness. Follows some commands. Expressive aphasia. PSYCHIATRIC: Appropriate mood and affect; insight and judgment difficult to assess, but appears limited. A/P Problem List: (1) CVA (cerebral vascular accident) ICD Code: I63.9 Status: Chronic (2) Recurrent falls ICD Code: R29.6 Status: Acute (3) UTI (urinary tract infection) ICD Code: N39.0 Status: Resolved (4) A-fib ICD Code: I48.91 Status: Chronic Assessment and Plan 80-year-old male with a PMH of HTN, A. 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 No new focal deficits. Not on home medications per SNF except for Levaquin. CT Head w/ no acute hemorrhage, reviewed. Case management consulted and assisting with placement. PT/OT/ST evaluation. Falls: Recurrent. Unwitnessed fall prior to admission per SNF. Reviewed: CT Head w/ subacute infarct left basal ganglia, no acute findings. Hip/Pelvis X-ray negative for fracture. Femur X-ray negative. CXR with no acute findings. -Continue rehabilitation efforts Abnormal UA: U/a w/ evidence of UTI. Indwelling Perez for obstructive uropathy. Urine culture with mixed parish. Suspect colonization of Perez. Received IV ceftriaxone 2 and Levaquin 1 prior to admission. Afebrile with no leukocytosis. Stop antibiotics. Continue outpatient urology follow-up. A-fib: Chronic. Controlled. Follows w/ Dr. Gale as outpatient. Previously not on anticoagulation in light of ICH and high risk for bleed per family. Patient's conventions reservationist requested neurology evaluation to resume antiplatelet/anticoagulation. Neurology ordered brain MRI and will make recommendations based on the results, follow-up recommendations. Diarrhea: Antibiotic associated. Discontinue antibiotics as no definite signs of UTI. Lactinex. Rule out C. difficile. Follow-up labs today. Agitation: S/P CVA. The patient's family wishes to talk to psychiatry, family is concerned that medications for agitation will make him too sleepy. Seroquel when necessary. DVT Prophylaxis: SCD/Teds. Discharge Planning Follow-up specialists recommendations. Discharge to SNF/rehabilitation when arrangements made. Case management consulted for assistance with discharge disposition. Minor Oliveira September 12, 2016 09:14
[2016-09-12] MEDS ORDERED: QUEtiapine FUMARATE 25 MG TAB PO PRN (09:15)
--- NOTE | 2016-09-12 13:58 | PD.CARD.PN ---
Subjective Subjective Remarks alert in nad Objective Vital Signs / I&O Vital Signs Date Time Temp Pulse Resp B/P Pulse Ox O2 Delivery O2 Flow Rate FiO2 09/12/16 12:36 97.5 73 20 135/81 91 09/12/16 08:35 98.3 68 18 148/76 91 09/12/16 04:46 98.7 81 18 140/72 94 09/12/16 00:04 98.2 86 18 154/96 93 09/11/16 19:29 98.6 79 16 133/88 91 09/11/16 15:24 98.3 93 16 141/87 94 I/O 09/11/16 09/11/16 09/11/16 09/12/16 09/12/16 09/12/16 07:00 15:00 23:00 07:00 15:00 23:00 Intake Total 760 ml Output Total 350 ml 450 ml 450 ml Balance 410 ml -450 ml -450 ml Intake IV Total 760 ml Output Urine Total 350 ml 450 ml 450 ml # Bowel Movements 2 Physical Exam GENERAL: SKIN: Warm and dry. HEAD: Normocephalic. EYES: No scleral icterus. No injection or drainage. NECK: Supple, trachea midline. No JVD or lymphadenopathy. CARDIOVASCULAR: Regular rate and rhythm without murmurs, gallops, or rubs. RESPIRATORY: Breath sounds equal bilaterally. No accessory muscle use. GASTROINTESTINAL: Abdomen soft, non-tender, nondistended. MUSCULOSKELETAL: No cyanosis, or edema. BACK: Nontender without obvious deformity. No CVA tenderness. Assessment and Plan Problem List: (1) Atrial fibrillation (2) Ischemic stroke (3) CVA (cerebral vascular accident) (4) Recurrent falls Assessment and Plan 1.) Af - rate controlled, assymptomatic, ac and bp parameters per Dr Khan Problem Qualifiers (1) Atrial fibrillation: Qualified Code: I48.2 - Chronic atrial fibrillation Dada Gale MD September 12, 2016 13:58
--- NOTE | 2016-09-12 15:05 | RADRPT ---
EXAM DATE/TIME: 09/12/2016 12:04 [facility] COMPARISON: CT BRAIN W/O CONTRAST, September 09, 2016, 20:19. INDICATIONS : Frequent falls. MEDICAL HISTORY : Stroke Hypertension. Myocardial infarction. SURGICAL HISTORY : Inguinal hernia repair. Coronary artery stent. ENCOUNTER: Initial ACUITY: 2 day PAIN SCORE: 0/10 LOCATION: Head TECHNIQUE: Multiplanar, multisequence MRI of the brain was performed without contrast. FINDINGS: The examination demonstrates an area of hemorrhagic stroke involving the left parietal cortex this me asures approximately 7.0 x 3.8 cm. There is increased T2 signal throughout this on the diffusion rest ricted images. There is only minimal mass effect on the lateral ventricles. There are some areas of s ubtle signal dropout on the SWI images. This would suggest a very minimal amount of subarachnoid hemo rrhage as well. There are scattered areas of increased T2 signal throughout the white matter most consistent with socrates rovascular ischemic demyelinative change. The appearance of the posterior fossa is unremarkable. TheC ONCLUSION: 1. There is a large area of abnormal signal involving the left parietal and portions of the left temp oral cortex. Findings are most consistent with hemorrhagic infarct. The overall location is somewhat medial but vein of Orly infarct would be in the differential. The SWI images demonstrate hemorrhage within this as well as some punctate areas of signal dropout in the interhemispheric fissure and valeriano g the sulci and gyri of the temporal cortex suggesting a small amount of subarachnoid hemorrhage. Aaron Meier MD on September 12, 2016 at 14:57 Board Certified Radiologist. This report was verified electronically.
[2016-09-13 04:21] VITALS: BP 117/74; PULSE 75; RESP 16; TEMP 97.8; O2SAT 92
[2016-09-13 04:45] LABS: AUTOMATED NEUTROPHIL # 3.8 TH/MM3 (1.8-7.7); BASOPHIL # 0.1 TH/MM3 (0-0.2); BASOPHIL % 1.5 % (0.0-2.0); EOSINOPHIL # 0.1 TH/MM3 (0-0.4); EOSINOPHIL % 2.3 % (0.0-4.0); HEMATOCRIT 37.4 % (39.0-51.0); HEMO FLAGS DIFF FINAL; LYMPH % 21.5 % (9.0-44.0); LYMPHOCYTE # 1.2 TH/MM3 (1.0-4.8); MEAN CELL VOLUME 90.6 FL (80.0-100.0); MEAN CORPUSCULAR HEMOGLOBIN 30.1 PG (27.0-34.0); MEAN CORPUSCULAR HGB CONC 33.3 % (32.0-36.0); NEUT % 66.7 % (16.0-70.0); PLATELET COUNT 178 TH/MM3 (150-450); RED BLOOD COUNT 4.12 MIL/MM3 (4.50-5.90); WHITE BLOOD COUNT 5.7 TH/MM3 (4.0-11.0)
[2016-09-13 05:09] LABS: BICARBONATE 27.2 MEQ/L (21.0-32.0); POTASSIUM 3.5 MEQ/L (3.5-5.1)
[2016-09-13 05:49] LABS: C. DIFF EPI 027 PRESUMPTIVE NEGATIVE (NEGATIVE); C. DIFF TOXIN PCR NEGATIVE (NEGATIVE)
[2016-09-13] MEDS: SODIUM CHLOR 0.9% 1000 ML INJ 1,000 ML IV SCH (06:17)
[2016-09-13 08:03] VITALS: BP 149/79; PULSE 84; RESP 15; TEMP 98.5; O2SAT 90
[2016-09-13] MEDS: SODIUM CHLORIDE 0.9% FLUSH 10 ML FLUSH IV FLUSH SCH (09:00)
[2016-09-13] MEDS ORDERED: QUET1TAB7 PO (09:04)
[2016-09-13] MEDS ORDERED: LACTG PO (09:04)
--- NOTE | 2016-09-13 09:07 | HHI.DS ---
Discharge Summary Admission Date September 09, 2016 at 22:09 Discharge Date: September 13, 2016 Admitting Diagnosis Recurrent Falls, Hematuria, UTI with indwelling khan cath (1) CVA (cerebral vascular accident) ICD Code: I63.9 Diagnosis: Secondary (2) Recurrent falls ICD Code: R29.6 Diagnosis: Principal (3) UTI (urinary tract infection) ICD Code: N39.0 Diagnosis: Secondary (4) A-fib ICD Code: I48.91 Diagnosis: Secondary Procedures none Brief History - From Admission This is an 80-year-old male with a PMH of HTN, A. 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 Per SNF report , pt w/ increasing agitation and combative, trying to hit nurses, refusing meals , refusing treatment and had pulled out Khan. Per family, pt not refusing. According to them, Khan accidentally dislodged during the time of fall today. Khan replaced at this time. Of note, pt has been on Levaquin 500mg PO for UTI , per SNF, pt not on any other medications. Family unhappy w/ care at [facility] thus far. Case Management consulted for assistance w/ possible transfer to alternate facility. On arrival, BP 136/79, HR 86, O2 sat 92% on RA, Afebrile. CBC essentially unremarkable except for elevated neutrophil count. Chemistry essentially unremarkable. UA with UTI. CT Head with subacute infarct basal ganglia left, no acute hemorrhage. CXR with no acute findings. Femur X-ray normal. Hip/Pelvis X-ray negative for fracture. No local PCP. Following w/ Dr. Gale for Cardiology. Not on anticoagulation for high risk of bleed per family. CBC/BMP: 09/13/16 0347 09/13/16 0347 Significant Findings Laboratory Tests Test 09/13/16 03:47 Red Blood Count 4.12 MIL/MM3 (4.50-5.90) Hemoglobin 12.4 GM/DL (13.0-17.0) Hematocrit 37.4 % (39.0-51.0) Creatinine 0.59 MG/DL (0.60-1.30) Imaging Last Impressions Brain MRI 09/12/16 0000 Signed Impressions: Service Date/Time: Monday, September 12, 2016 12:04 - CONCLUSION: 1. There is a large area of abnormal signal involving the left parietal and portions of the left temporal cortex. Findings are most consistent with hemorrhagic infarct. The overall location is somewhat medial but vein of Orly infarct would be in the differential. The SWI images demonstrate hemorrhage within this as well as some punctate areas of signal dropout in the interhemispheric fissure and along the sulci and gyri of the temporal cortex suggesting a small amount of subarachnoid hemorrhage. Aaron Meier MD Hip and Pelvis X-Ray 09/09/161952 Signed Impressions: Service Date/Time: Friday, September 09, 2016 20:06 - CONCLUSION: Negative for fracture. CT scan may be of benefit if the patient remains symptomatic. Faustino Meier MD FACR Head CT 09/09/161952 Signed Impressions: Service Date/Time: Friday, September 09, 2016 20:19 - CONCLUSION: Subacute infarct basalganglia left side involving the insular cortex. There is no hemorrhage. Faustino Meier MD FACR Femur X-Ray 09/09/161952 Signed Impressions: Service Date/Time: Friday, September 09, 2016 20:09 - CONCLUSION: Normal examination for a patient of this age. Faustino Meier MD FACR Chest X-Ray 09/09/161952 Signed Impressions: Service Date/Time: Friday, September 09, 2016 20:15 - CONCLUSION: No acute disease. Faustino Meier MD FACR PE at Discharge GENERAL: Well-developed well-nourished. In no acute distress. SKIN: Warm and dry. No lesions noted. HEENT: Normocephalic. Pupils equal and round. Mucous membranes pink and moist. CARDIOVASCULAR: Irregular rate and rhythm. No murmur appreciated. RESPIRATORY: No accessory muscle use. Clear to auscultation. Breath sounds equal bilaterally. GASTROINTESTINAL: Abdomen soft, non-tender, nondistended. Bowel sounds x4. PEG tube in place with abdominal binder. MUSCULOSKELETAL: No obvious deformities. No clubbing or cyanosis. No edema. NEUROLOGICAL: Awake and alert. Profound right-sided weakness. Follows some commands. Expressive aphasia. PSYCHIATRIC: Appropriate mood and affect; insight and judgment difficult to assess, but appears limited. Pt update on day of discharge Patient seen eating breakfast with his daughter at bedside. They report no acute issues overnight. The patient did receive Seroquel last night, and expresses that he slept well. The patient denies any further diarrhea. Reportedly Dr. Garcia with [facility] will follow up with Dr. Meredith regarding anticoagulation. Hospital Course 80-year-old male with a PMH of HTN, A. fib, CVA with Residual Aphasia and Right- Sided Hemiparesis, Indwelling Khan, and CAD who was sent to the ER from [facility] after unwitnessed fall CVA, subacute: recent CVA approx 7wks ago at , s/p TPA w/ subsequent ICH, now w/ residual aphasia and right-sided hemiparesis, at baseline. No new focal deficits. CT Head w/ no acute hemorrhage. PT/OT/ST. neuro consulted as below, follow-up in 2 weeks. Falls: Recurrent. Unwitnessed fall prior to admission per SNF. Reviewed: CT Head w/ subacute infarct left basal ganglia, no acute findings. Hip/Pelvis X-ray negative for fracture. Femur X-ray negative. CXR with no acute findings. -Discharge to [facility]. Abnormal UA: U/a w/ evidence of UTI. Indwelling Khan for obstructive uropathy. Urine culture with mixed parish. Suspect colonization of Khan. Received IV ceftriaxone 2 and Levaquin 1 prior to admission. Afebrile with no leukocytosis. Stopped antibiotics. Continue outpatient urology follow-up. A-fib: Chronic. Controlled. Follows w/ Dr. Gale as outpatient. Previously not on anticoagulation in light of ICH and high risk for bleed per family. Patient's investor relations manager requested neurology evaluation to resume antiplatelet/anticoagulation. Neurology ordered brain MRI, recommending holding off on anticoagulation for at least another 2 weeks. Diarrhea: Antibiotic associated. Discontinued antibiotics as no definite signs of UTI. Improved with Lactinex. C. difficile negative. Agitation: S/P CVA. Improved with low-dose Seroquel as needed, continue. Pt Condition on Discharge: Stable Discharge Disposition: Rehab Inpatient Discharge Time: > 30 minutes Discharge Instructions DIET: Follow Instructions for: Heart Healthy Diet Activities you can perform: Regular-No Restrictions Follow up Referrals: Neurology - 2 Weeks @ [facility] with Mau Weiner MD PCP Follow-up - 2-3 Days Urology - 1 Week New Medications: Lactobacillus Acidophilus (Floranex) 1 Gm Pkt 1 GM PO TID Diarrhea #21 PACK Quetiapine (Quetiapine) 25 Mg Tab 25 MG PO DAILY PRN AGITATION #15 TAB Discontinued Medications: Aspirin (Aspirin) 325 Mg Tab 325 MG PO DAILY #30 Ref 0 TAB Melatonin (Melatonin) 3 Mg Tab Minor Oliveira September 13, 2016 09:07
--- NOTE | 2016-09-13 09:36 | HHI.PR ---
Objective Vital Signs Date Time Temp Pulse Resp B/P Pulse Ox O2 Delivery O2 Flow Rate FiO2 09/13/16 08:03 98.5 84 15 149/79 90 09/13/16 04:21 97.8 75 16 117/74 92 09/12/16 23:28 98.7 68 18 123/71 92 09/12/16 20:31 98.8 66 16 108/56 90 09/12/16 16:00 98.6 70 18 122/76 91 09/12/16 12:36 97.5 73 20 135/81 91 I/O 09/12/16 09/12/16 09/12/16 09/13/16 09/13/16 09/13/16 07:00 15:00 23:00 07:00 15:00 23:00 Output Total 450 ml 750 ml Balance -450 ml -750 ml Output Urine Total 450 ml 750 ml # Bowel Movements 2 Result Diagram: 09/13/16 0347 09/13/16 0347 Objective Remarks awake alert rhp and exp aphasia no change Assessment and Plan Assessment and Plan imp mri a lot of heme in left mca cva too much for coumadin now i would wait another 2 weeks to start fu dr perdomo in two weeks Roverto Meredith MD September 13, 2016 09:36
[2016-09-13] MEDS: LACTOBACILLUS ACIDOPHILUS 1 GM PACKET PO SCH (09:59)
[2016-10-08] MEDS ORDERED: ALLBC PO (08:38)
[2016-10-08] MEDS ORDERED: TAMS5CAP PO (08:38)
[2016-10-08] MEDS ORDERED: COUM5TAB PO (08:38)
[2016-10-08] MEDS ORDERED: ENOX60P SQ (08:38)
[2016-10-08] MEDS ORDERED: GNP5TAB6 PO (08:38)
== END 2016-09-13 11:00 | disposition short-term general hospital (02) ==
LOC: NEPC 19:36 → NEDA 22:09 → NEPFCDU 23:26
PROVIDERS: ADMIT Internal Medicine; ATTEND Internal Medicine
DX: I63.9 Cerebral infarction, unspecified (principal); I69.320 Aphasia following cerebral infarction; I69.351 Hemiplegia and hemiparesis following cerebral infarction affecting right dominant side; N39.0 Urinary tract infection, site not specified; R29.6 Repeated falls; I48.2 Chronic atrial fibrillation; I10 Essential (primary) hypertension; I25.10 Atherosclerotic heart disease of native coronary artery without angina pectoris; R19.7 Diarrhea, unspecified; I25.2 Old myocardial infarction; D64.9 Anemia, unspecified; R79.89 Other specified abnormal findings of blood chemistry; Z95.5 Presence of coronary angioplasty implant and graft; Z92.82 Status post administration of tPA (rtPA) in a different facility within the last 24 hours prior to admission to current facility
CPT/HCPCS: 70450; 70551; 71010; 73502; 73552; 80048; 80053; 81001; 85025; 85610; 85730; 87086; 87493; 92523; 93005; 97163; 97167; 99285; G0378; G8987; G8988; G9174; G9175; G9176; J0696; J7030; J7040

== ENCOUNTER 2016-12-15 10:53 | Emergency (ER) | payer MEDICARE, OTHER ==
[~2016-12-15] VITALS: Ht 177.8 cm; Wt 76.0 kg
[~2016-12-15 10:53] MED LIST: ALLBC PO; COUM5TAB PO; ENOX60P SQ; GNP5TAB6 PO; LACTG PO; QUET1TAB7 PO; TAMS5CAP PO
[2016-12-15 10:54] VITALS: BP 139/98; PULSE 92; RESP 17; TEMP 97.9; O2SAT 97
[2016-12-15] MEDS ORDERED: TAMS5CAP PO (11:25)
--- NOTE | 2016-12-15 12:22 | RADRPT ---
EXAM DATE/TIME: 12/15/2016 11:30 [facility] COMPARISON: No previous studies available for comparison. INDICATIONS : Pain from fall onto right side. MEDICAL HISTORY : None. SURGICAL HISTORY : None. ENCOUNTER: Initial ACUITY: 1 day PAIN SCORE: 4/10 LOCATION: Right ribs. FINDINGS: Multiple views of the right ribs were performed. There is no evidence of displaced fracture. No estevan tructive lesions or areas of periosteal thickening are seen. Expiratory view of the chest is negativ e for pneumothorax. The mediastinal structures are midline. CONCLUSION: Unremarkable examination of the right ribs and chest. Roland Anna MD on December 15, 2016 at 12:20 Board Certified Radiologist. This report was verified electronically.
--- NOTE | 2016-12-15 12:23 | RADRPT ---
EXAM DATE/TIME: 12/15/2016 11:37 [facility] COMPARISON: No previous studies available for comparison. INDICATIONS : Pain from fall onto right side. MEDICAL HISTORY : None. SURGICAL HISTORY : None. ENCOUNTER: Initial ACUITY: 1 day PAIN SCORE: 2/10 LOCATION: Right pelvis FINDINGS: A single frontal view of the pelvis demonstrates no evidence of fracture. Degenerative change lower l umbar spine and both hips. Postsurgical changes. The bony pelvic ring is intact. Bony mineralization is normal. The soft tissues are intact. CONCLUSION: Degenerative change without fracture. Roland Anna MD on December 15, 2016 at 12:21 Board Certified Radiologist. This report was verified electronically.
--- NOTE | 2016-12-15 12:24 | RADRPT ---
EXAM DATE/TIME: 12/15/2016 11:39 [facility] COMPARISON: FEMUR RIGHT (AP & LAT/2VWS), September 09, 2016, 20:09. INDICATIONS : Pain from fall on right side. MEDICAL HISTORY : None. SURGICAL HISTORY : None. ENCOUNTER: Initial ACUITY: 1 day PAIN SCORE: 1/10 LOCATION: Right femur. FINDINGS: Two view examination of the right femur demonstrates no evidence of fracture or dislocation. Bony mi neralization is normal. The soft tissue structures are intact. CONCLUSION: No acute fracture. Roland Anna MD on December 15, 2016 at 12:21 Board Certified Radiologist. This report was verified electronically.
--- NOTE | 2016-12-15 12:24 | RADRPT ---
EXAM DATE/TIME: 12/15/2016 11:45 [facility] COMPARISON: No previous studies available for comparison. INDICATIONS : Pain from fall on right side. MEDICAL HISTORY : None. SURGICAL HISTORY : None. ENCOUNTER: Initial ACUITY: 1 day PAIN SCORE: 1/10 LOCATION: Right lower leg. FINDINGS: Two view examination of the right tibia demonstrates no evidence of fracture or dislocation. Bony mi neralization is normal. The soft tissue structures are intact. CONCLUSION: No acute fracture. Roland Anna MD on December 15, 2016 at 12:23 Board Certified Radiologist. This report was verified electronically.
--- NOTE | 2016-12-15 12:30 | RADRPT ---
EXAM DATE/TIME: 12/15/2016 11:43 [facility] COMPARISON: No previous studies available for comparison. INDICATIONS : Pain from fall on right side. MEDICAL HISTORY : None. SURGICAL HISTORY : None. ENCOUNTER: Initial ACUITY: 1 day PAIN SCORE: 1/10 LOCATION: Right knee. FINDINGS: Two view examination of the right knee demonstrates no evidence of fracture or dislocation. Mild ost eoarthritis.. Bony mineralization is normal. The suprapatellar soft tissues have a normal configurat ion. CONCLUSION: Mild osteoarthritis without fracture. Roland Anna MD on December 15, 2016 at 12:28 Board Certified Radiologist. This report was verified electronically.
--- NOTE | 2016-12-15 12:56 | RADRPT ---
EXAM DATE/TIME: 12/15/2016 12:30 [facility] COMPARISON: MRI BRAIN W/O CONTRAST, September 12, 2016, 12:04. CT BRAIN W/O CONTRAST, September 26, 2016, 9:40. INDICATIONS : Fall, hit right side of head. RADIATION DOSE: 31.87 CTDIvol (mGy) MEDICAL HISTORY : Stroke. Cardiovascular disease Hypertension. SURGICAL HISTORY : None. ENCOUNTER: Initial ACUITY: 1 day PAIN SCALE: 3/10 LOCATION: Right parietal TECHNIQUE: Multiple contiguous axial images were obtained of the head. Using automated exposure control and adj ustment of the mA and/or kV according to patient size, radiation dose was kept as low as reasonably a chievable to obtain optimal diagnostic quality images. DICOM format image data is available electro nically for review and comparison. FINDINGS: CEREBRUM: Area of low density in the left temporal and parietal lobe appears slightly less prominent. Old left basal ganglia infarcts. There is also low-density in the left cerebral peduncle. The ventricles are n ormal for age. No evidence of midline shift, mass lesion, hemorrhage. No extra-axial fluid collecti ons are seen. POSTERIOR FOSSA: The cerebellum and brainstem are intact. The 4th ventricle is midline. The cerebellopontine angle i s unremarkable. EXTRACRANIAL: The visualized portion of the orbits is intact. SKULL: The calvaria is intact. No evidence of skull fracture. CONCLUSION: 1. Slightly decreasing density in the left temporal/parietal lobes. 2. No acute hemorrhage on current study. 3. No midline shift. Roland Anna MD on December 15, 2016 at 12:53 Board Certified Radiologist. This report was verified electronically.
--- NOTE | 2016-12-15 13:00 | RADRPT ---
EXAM DATE/TIME: 12/15/2016 12:30 [facility] COMPARISON: No previous studies available for comparison. INDICATIONS : Fall, right jaw pain and swelling. RADIATION DOSE: 18.62 CTDIvol (mGy) MEDICAL HISTORY : Stroke. Cardiovascular disease Hypertension. SURGICAL HISTORY : None. ENCOUNTER: Initial ACUITY: 1 day PAIN SCORE: 6/10 LOCATION: Right facial TECHNIQUE: Volumetric scanning of the facial bones was performed. Using automated exposure control and adjustme nt of the mA and/or kV according to patient size, radiation dose was kept as low as reasonably achiev able to obtain optimal diagnostic quality images. DICOM format image data is available electronicall y for review and comparison. FINDINGS: ORBITS: The orbital and infraorbital osseous structures are intact. The retroconal structures have a normal configuration. No radiopaque foreign bodies are seen. NASAL BONE: The nasal bone and maxillary spine are intact ZYGOMATIC ARCHES: Symmetric without evidence of fracture. SINUSES: The maxillary, ethmoid and frontal sinuses are intact. No air-fluid levels seen. NASAL CAVITY: The nasal septum is intact and midline. The lacrimal ducts are intact. SOFT TISSUES: No radiopaque foreign bodies seen. Right-sided facial soft-tissue swelling is seen. There is enlargem ent of the right parotid gland and some inflammatory changes. INTRACRANIAL: No intracranial air seen. CRIBIFORM PLATE: Grossly intact. Fluid in the right mastoid air cells and right middle ear cavity. CONCLUSION: 1. Facial soft tissue swelling. 2. No facial fracture seen. 3. Fluid in the right mastoid air cells and right middle ear cavity. 4. Minimal fluid right maxillary sinus. 5. Enlargement and soft tissue swelling of the right facial soft tissues and right parotid gland. Roland Anna MD on December 15, 2016 at 12:55 Board Certified Radiologist. This report was verified electronically.
--- NOTE | 2016-12-15 13:05 | RADRPT ---
EXAM DATE/TIME: 12/15/2016 12:30 [facility] COMPARISON: No previous studies available for comparison. INDICATIONS : Fall, neck pain. RADIATION DOSE: 18.62 CTDIvol (mGy) MEDICAL HISTORY : Stroke. Cardiovascular disease Hypertension. SURGICAL HISTORY : None. ENCOUNTER: Initial ACUITY: 1 day PAIN SCALE: 3/10 LOCATION: neck TECHNIQUE: Volumetric scanning of the cervical spine was performed. Multiplanar reconstructions in the sagittal, coronal and oblique axial planes were performed. Using automated exposure control and adjustment o f the mA and/or kV according to patient size, radiation dose was kept as low as reasonably achievable to obtain optimal diagnostic quality images. DICOM format image data is available electronically f or review and comparison. FINDINGS: VERTEBRAE: Normal vertebral body height. Advanced multilevel degenerative changes. No fracture seen. Posterior d isc osteophyte complexes at C2-3, C3-4, C4-5, C5-6 and C6-7 levels without canal stenosis. Uncoverteb ral spurring and hypertrophic facets. ALIGNMENT: No evidence of subluxation. CONCLUSION: 1. No fracture or subluxation. 2. Advanced multilevel degenerative changes. Roland Anna MD on December 15, 2016 at 13:02 Board Certified Radiologist. This report was verified electronically.
--- NOTE | 2016-12-15 13:20 | PD ---
HPI Chief Complaint: Fall Time Seen by Provider: 11:06 Travel History International Travel<30 days: No Contact w/Intl Traveler<30days: No Traveled to known affect area: No History of Present Illness HPI Patient is an 81-year-old male who comes in with his family after a fall. He was at physical therapy and he tried to walk without assistance and he fell onto his right side. He had a stroke a few months ago and is paralyzed on the right side from this. He is unable to feel pain, and the family is worried that he might of injured himself. He did not pass out. He denies any other symptoms at this time. He has not been having any chest pain or shortness of breath. He has not had fever or chills. PFSH Past Medical History Arthritis: Yes Asthma: No Atrial Fibrillation: Yes Autoimmune Disease: No Anxiety: No Depression: No Heart Rhythm Problems: Yes (Afib) Cancer: No Cardiovascular Problems: Yes High Cholesterol: Yes Chemotherapy: No Chest Pain: No Congestive Heart Failure: No COPD: No Cerebrovascular Accident: Yes Diabetes: No Endocrine: No Gastrointestinal Disorders: Yes GERD: No Genitourinary: No Hiatal Hernia: No Hypertension: Yes Immune Disorder: No Kidney Stones: No Musculoskeletal: Yes Neurologic: Yes Psychiatric: No Reproductive: No Respiratory: No Migraines: No Myocardial Infarction: Yes Radiation Therapy: No Renal Failure: No Seizures: No Sickle Cell Disease: No Sleep Apnea: No Thyroid Disease: No Ulcer: No Influenza Vaccination: Yes Past Surgical History Abdominal Surgery: No AICD: No Arteriovenous Shunt: No Cardiac Surgery: Yes (Stent) Ear Surgery: No Endocrine Surgery: No Eye Surgery: Yes (Cataract surgery 2007-12) Genitourinary Surgery: No Gynecologic Surgery: No Insulin Pump: No Joint Replacement: No Oral Surgery: No Pacemaker: No Thoracic Surgery: No Other Surgery: Yes (Two hernia repairs in [id number]) Social History Alcohol Use: Yes (rare glass of wine) Tobacco Use: No Substance Use: No Allergies-Medications (Allergen,Severity, Reaction): Coded Allergies: lorazepam (Verified Adverse Reaction, Intermediate, RASH, 12/15/16) quetiapine (Verified Adverse Reaction, Intermediate, LETHARGY / RASH, 12/15) Reported Meds & Prescriptions Reported Meds & Active Scripts Active Coumadin (Warfarin) 5 Mg Tab 5 Mg PO DAILY@1600 Total B/C (Vitamin B Complex/Vit C) 1 Tab Tab 1 Tab PO DAILY Gnp Melatonin Maximum Str (Melatonin) 5 Mg Tab 5 Mg PO HS Reported Flomax (Tamsulosin HCl) 0.4 Mg Cap 0.4 Mg PO DAILY@1600 Review of Systems Except as stated in HPI: all other systems reviewed are Neg General / Constitutional: No: Fever, Chills Eyes: No: Blurred Vision HENT: No: Headaches, Lightheadedness Cardiovascular: No: Chest Pain or Discomfort Respiratory: No: Shortness of Breath Gastrointestinal: No: Nausea, Vomiting Musculoskeletal: No: Pain Skin: No Rash, No Change in Pigmentation Physical Exam Narrative GENERAL: Awake and alert, in no acute distress. SKIN: Focused skin assessment warm/dry. No wounds. HEAD: Atraumatic. Normocephalic. EYES: Pupils equal and round. No scleral icterus. Extraocular movements intact. ENT: Mucous membranes pink and moist. NECK: Trachea midline. No JVD. No cervical spine tenderness. CARDIOVASCULAR: Regular rate and rhythm. No murmur appreciated. RESPIRATORY: No accessory muscle use. Clear to auscultation. Breath sounds equal bilaterally. GASTROINTESTINAL: Abdomen soft, non-tender, nondistended. MUSCULOSKELETAL: No obvious deformities. No clubbing. No cyanosis. No edema. NEUROLOGICAL: Awake and alert. Right sided facial droop from previous stroke. Unable to move his right side due to previous stroke. A phasic from previous stroke. PSYCHIATRIC: Appropriate mood and affect; insight and judgment normal. Data Data Last Documented VS Vital Signs Date Time Temp Pulse Resp B/P Pulse Ox O2 Delivery O2 Flow Rate FiO2 12/15/16 10:54 97.9 92 17 139/[address] Brain W/O Iv Contrast(Rout) (12/15/16 ) Ct Facial Bones W/O Iv Cont (12/15/16 ) Ct Cerv Spine W/O Contrast (12/15/16 ) Ribs, Uni (W/Exp Cxr-Min 3vw) (12/15/16 ) Pelvis, Ap Only (Routine) (12/15/16 ) Femur (Ap & Lat/2vws) (12/15/16 ) Tibia/Fibula (Ap/Lat) (12/15/16 ) Knee, Ltd (1 Or 2vws) (12/15/16 ) MDM Medical Decision Making Medical Screen Exam Complete: Yes Emergency Medical Condition: Yes Medical Record Reviewed: Yes Differential Diagnosis ICH versus jaw fracture versus rib fracture versus hip fracture Narrative Course Patient is an 81-year-old male who comes in after a fall today. He is currently not feeling any pain, but has difficulties with sensation after previous stroke. His family would like his entire right side x-rayed because they're worried since he cannot feel anything there that he might have injured himself. CT head, C-spine, facial bones performed show no acute abnormalities. X-ray of the chest and right-sided ribs show no acute abnormality. X-ray of the pelvis, femur, knee, tib-fib show no acute abnormalities. Patient to be discharged with family. He is advised to be careful with walking. Advised follow-up with his doctor. Advised to return to the ED as needed for any worsening symptoms. Diagnosis Primary Impression: Fall Qualified Code: W19.XXXA - Fall, initial encounter Patient Instructions: Fall Prevention (ED), General Instructions Additional Instructions: Be careful and walk with assistance. Follow-up with her doctor. Return to the ED as needed for any worsening symptoms. Disposition: 01 DISCHARGE HOME Condition: Stable Nini Bryant MD Dec 15, 2016 13:20
== END 2016-12-15 13:49 | disposition home or self-care (01) ==
LOC: NEPD 10:53
DX: T14.90 Injury, unspecified (principal); W19.XXXA Unspecified fall, initial encounter; Y92.538 Other ambulatory health services establishments as the place of occurrence of the external cause; Z86.73 Personal history of transient ischemic attack (TIA), and cerebral infarction without residual deficits
CPT/HCPCS: 70450; 70486; 71101; 72125; 72170; 73552; 73560; 73590; 99285